=== PATIENT | female | born 2000 | race Caucasian/White ===

== ENCOUNTER 2021-07-27 07:39 | Emergency (ER) | payer OTHER ==
[~2021-07-27] VITALS: Ht 147.3 cm; Wt 90.7 kg
[2021-07-27 08:08] VITALS: BP 139/88
[2021-07-27] MEDS ORDERED: NAPR500T31 PO (08:27)
[2021-07-27] MEDS ORDERED: AMOX500T86 PO (08:27)
[2021-07-27] MEDS ORDERED: TETANUS-DIPTH-ACEL PERTUSSIS 0.5ML SYR Tdap IM ONE (08:30)
[2021-07-27] MEDS ORDERED: CLIN300C8 PO (08:48)
== END 2021-07-27 08:54 | disposition home or self-care (01) ==
LOC: ER 07:39
DX: S61.051A Open bite of right thumb without damage to nail, initial encounter (principal); S61.031A Puncture wound without foreign body of right thumb without damage to nail, initial encounter; Z79.2 Long term (current) use of antibiotics; Z79.899 Other long term (current) drug therapy; W54.0XXA Bitten by dog, initial encounter; Y93.89 Activity, other specified; Y92.89 Other specified places as the place of occurrence of the external cause; Y99.8 Other external cause status
CPT/HCPCS: 90471; 90715

== ENCOUNTER 2022-03-16 08:15 | Emergency (ER) | payer OTHER ==
[~2022-03-16 08:15] MED LIST: CLIN300C8 PO; NAPR500T31 PO
[2022-03-16 10:10] VITALS: BP 133/88
[2022-03-16] MEDS ORDERED: CLIN300C8 PO (10:21)
[2022-03-16] MEDS ORDERED: IBUP800T27 PO (10:21)
== END 2022-03-16 10:25 | disposition home or self-care (01) ==
LOC: ER 08:15
DX: K04.7 Periapical abscess without sinus (principal); Z79.1 Long term (current) use of non-steroidal anti-inflammatories (NSAID); Z79.2 Long term (current) use of antibiotics; Z79.899 Other long term (current) drug therapy; Z88.0 Allergy status to penicillin